=== PATIENT | male | born 1965 | race Caucasian/White ===

== ENCOUNTER 2022-05-25 07:46 | Day surgery (SDC) | payer MEDICAID ==
[~2022-05-25] VITALS: Ht 160 cm; Wt 63.5 kg
[2022-05-25] MEDS ORDERED: MEPERIDINE 100 MG INJ. 100 MG/ML VIAL ONE (08:15)
[2022-05-25] MEDS ORDERED: SIMETHICONE 40 MG/0.6 ML ML ONE (08:15)
[2022-05-25] MEDS: MIDAZOLAM HCL 5 MG/5 ML VIAL ONE ×3 (10:56→11:00)
[2022-05-25] MEDS ORDERED: MIDAZOLAM HCL 5 MG/5 ML VIAL ONE (11:05)
[2022-05-25 16:09] VITALS: BP_SYST 122
== END 2022-05-25 12:45 | disposition home or self-care (01) ==
LOC: SDS 07:46 → SMU 07:47 → SDS 12:45
PROVIDERS: ATTEND Internal Medicine Gastroenterology
DX: Z12.11 Encounter for screening for malignant neoplasm of colon (principal); D12.5 Benign neoplasm of sigmoid colon; K64.8 Other hemorrhoids; K57.30 Diverticulosis of large intestine without perforation or abscess without bleeding; Z79.899 Other long term (current) drug therapy; Z20.822 Contact with and (suspected) exposure to COVID-19
CPT/HCPCS: 36415; 45385; 88305; 99152; 99153; U0003; G0378; J2250; J2175; J7030